=== PATIENT | female | born 1965 | race Caucasian/White ===

== ENCOUNTER 2017-04-28 06:37 | Day surgery (SDC) | payer BC ==
[~2017-04-28] VITALS: Ht 160 cm; Wt 57.0 kg
[~2017-04-28 06:37] MED LIST: ESTR1PAT81 TD
[2017-04-28 07:32] LABS: PATH.CAST-FLAG NOT PRESENT; SPERM-FLAG NOT PRESENT; SRC-FLAG NOT PRESENT; XTAL-FLAG NOT PRESENT; YLC-FLAG NOT PRESENT
[2017-04-28] MEDS ORDERED: LACTATED RINGERS 1,000 ML IV SCH (07:42)
[2017-04-28 07:43] VITALS: BP 124/84
[2017-04-28 07:50] LABS: HEMATOCRIT 45.3 % (34.6-47.8); HEMOGLOBIN 15.2 g/dL (11.7-16.4); WHITE BLOOD COUNT 4.4 x10^3/uL (3.4-10)
[2017-04-28] MEDS ORDERED: LIDOCAINE 1%, 2ML SQ PRN (08:00)
[2017-04-28 08:02] LABS: BLOOD UREA NITROGEN 17 mg/dL (7-18)
[2017-04-28] MEDS ORDERED: FLUORESCEIN SODIUM 500 MG/5 ML ONE (08:30)
[2017-04-28] MEDS ORDERED: LIDOCAINE/PF 1%, 30ML ONE (08:30)
[2017-04-28] MEDS ORDERED: EPINEPHRINE 1 MG/ML, 1ML ONE (08:31)
[2017-04-28] MEDS ORDERED: PROPOFOL 10 MG/ML, 20ML ONE (08:39)
[2017-04-28] MEDS ORDERED: SUCCINYLCHOLINE 20 MG/ML, 10ML ONE (08:39)
[2017-04-28] MEDS ORDERED: CEFAZOLIN 1,000 MG ONE (08:40)
[2017-04-28] MEDS ORDERED: ROCURONIUM 10 MG/ML,10ML ONE ×2 (08:40→08:45)
[2017-04-28] MEDS ORDERED: MIDAZOLAM 1 MG/ML, 2ML ONE (08:40)
[2017-04-28] MEDS ORDERED: FENTANYL PF 100 MCG/2ML ONE ×2 (08:41→10:07)
[2017-04-28] MEDS ORDERED: KETOROLAC 30 MG/1 ML ONE ×2 (08:55→10:07)
[2017-04-28] MEDS ORDERED: DEXAMETHASONE 4 MG/ML, 1ML ONE ×2 (08:59)
[2017-04-28] MEDS ORDERED: ONDANSETRON 2MG/ML, 2ML ONE (08:59)
[2017-04-28] MEDS ORDERED: hydrALAzine 20 MG/ML, 1ML IV PRN (09:00)
[2017-04-28] MEDS ORDERED: ACETAMINOPHEN 325 MG TABLET PO PRN (09:00)
[2017-04-28] MEDS ORDERED: MEPERIDINE/PF 25MG/0.5ML IVPush PRN (09:00)
[2017-04-28] MEDS ORDERED: KETOROLAC 30 MG/1 ML IV PRN (09:00)
[2017-04-28] MEDS ORDERED: HYDROmorphone 1 MG/ML, 1ML IV PRN (09:00)
[2017-04-28] MEDS ORDERED: METOPROLOL 1 MG/ML, 5ML IV PRN (09:00)
[2017-04-28] MEDS ORDERED: LABETALOL 5MG/ML, 20ML IV PRN (09:00)
[2017-04-28] MEDS ORDERED: LORazepam 2 MG/ML, 1ML IVPush PRN (09:00)
[2017-04-28] MEDS ORDERED: HYDROcodone/APAP 7.5-325MG/15ML UDC PO PRN (09:00)
[2017-04-28] MEDS ORDERED: METOCLOPRAMIDE 5 MG/ML, 2ML IV PRN (09:00)
[2017-04-28] MEDS ORDERED: EPHEDRINE 50 MG/ML, 1ML IVPush PRN (09:00)
[2017-04-28] MEDS ORDERED: OXYcodone 5 MG/5 ML ORAL.SOL UDC PO PRN (09:00)
[2017-04-28] MEDS ORDERED: ONDANSETRON 2MG/ML, 2ML IVPush PRN (09:00)
[2017-04-28] MEDS ORDERED: ALBUTEROL SULFATE 2.5 MG/3 ML NPPB PRN (09:00)
[2017-04-28] MEDS ORDERED: PROMETHAZINE 25 MG/ML, 1ML IV PRN (09:00)
[2017-04-28] MEDS ORDERED: GLYCOPYRROLATE 0.2MG/1ML, 5ML ONE (09:02)
[2017-04-28] MEDS ORDERED: NEOSTIGMINE 1 MG/ML, 10ML ONE (09:02)
[2017-04-28] MEDS ORDERED: ACETAMINOPHEN 325 MG TABLET ONE (10:07)
[2017-04-28] MEDS ORDERED: ACETAMINOPHEN 650 MG/20.3 ML UDC ONE (10:07)
[2017-04-28] MEDS ORDERED: OXYcodone 5 MG/5 ML ORAL.SOL UDC ONE (10:08)
[2017-04-28] MEDS: FENTANYL PF 100 MCG/2ML IV PRN ×3 (10:20→10:41)
== END 2017-04-28 16:00 ==
LOC: OUT 06:37
PROVIDERS: ATTEND Obstetrics & Gynecology Gynecology
DX: N95.0 Postmenopausal bleeding (principal)
CPT/HCPCS: 36415; 52000; 58263; 80048; 81003; 85014; 85025; 88307; J0171; J0330; J0690; J1100; J1885; J2250; J2405; J2704; J2710; J3010; J3490; J7120